=== PATIENT | female | born 1985 | race African-American/Black ===

== ENCOUNTER 2017-04-10 08:53 | Emergency (ER) | payer MEDICAID ==
[~2017-04-10] VITALS: Ht 175.3 cm; Wt 70.0 kg
[~2017-04-10 08:53] MED LIST: IBUP800T23 PO; ORPH100T99 PO; TRAM50TA PO
[2017-04-10 08:55] VITALS: BP 123/79; PULSE 108; RESP 20; TEMP 99; O2SAT 99
[2017-04-10] MEDS ORDERED: TUCKPAD5 TOPICAL (09:15)
[2017-04-10] MEDS ORDERED: COLA100C PO (09:15)
[2017-04-10] MEDS ORDERED: sitz bath (09:15)
--- NOTE | 2017-04-10 09:16 | PD ---
HPI Chief Complaint: GI Complaint Time Seen by Provider: 09:03 Travel History International Travel<30 days: No Contact w/Intl Traveler<30days: No Traveled to known affect area: No History of Present Illness HPI This is a 31 year old female who presents to the emergency department with pain involving her rectum, constant, moderate severity, worse with coughing or walking. Pt. has a hemorrhoid. She has had hemorrhoids before but usually they go away. She's been using topical [id number] ointments but is not getting any better. She says her stools have been pretty loose and she's not been constipated. PFSH Past Medical History ?: Not LMP: depovera Social History Alcohol Use: Yes Tobacco Use: Yes Substance Use: No Allergies-Medications (Allergen,Severity, Reaction): Coded Allergies: Peanut Allergy (Verified Allergy, Severe, 10/10/16) Reported Meds & Prescriptions Reported Meds & Active Scripts Active Review of Systems General / Constitutional: No: Fever, Chills Gastrointestinal: No: Nausea Physical Exam Narrative GENERAL: Well-appearing, no acute distress, nontoxic SKIN: Warm and dry. HEAD: Atraumatic. Normocephalic. ENT: No nasal bleeding or discharge. Moist mucous membranes GI: thrombosed hemorrhoid at 2 o'clock involving the rectum MUSCULOSKELETAL: No obvious deformities. No clubbing. No cyanosis. No edema. NEUROLOGICAL: Awake and alert. No obvious cranial nerve deficits. Motor grossly within normal limits. Normal speech. PSYCHIATRIC: Appropriate mood and affect; insight and judgment normal. Data Data Last Documented VS Vital Signs Date Time Temp Pulse Resp B/P Pulse Ox O2 Delivery O2 Flow Rate FiO2 04/10/17 08:55 99.0 108 20 123/79 99 Room Air MDM Medical Decision Making Medical Screen Exam Complete: Yes Emergency Medical Condition: Yes Interpretation(s) temperature 99.0 tachycardic normotensive Differential Diagnosis External hemorrhoid, internal hemorrhoid, anal fissure Narrative Course This is a 31-year-old female who presents to the emergency department having pain in her rectum associated with a hemorrhoid. Patient is well-appearing. I recommended topical witch aureliano, sitz bath, and stool softener and follow up with gastroenterology. Diagnosis Primary Impression: External hemorrhoid, thrombosed Referrals: Eddi Shah MD Patient Instructions: General Instructions Additional Instructions: If you develop severe abdominal pain, nausea, vomiting, fevers or chills return to the emergency department. Follow up with a stained glass artist if your symptoms dont improve. Med/Other Pt SpecificInfo: Prescription(s) given Scripts [sitz bath] No Conflict Check #1 Unit Prov:Kassy Romero MD 04/10/17 Docusate Sodium (Colace)100 Mg Capsule1 Tab PO BID #60 Prov:Kassy Romero MD 04/10/17 Witch Aureliano Topical (Tucks Medicated Topical)50 % Pad1 Pad TOPICAL Q4H PRN (PAIN /INFLAMMATION) #1 CONTAINER Ref 0 Prov:Kassy Romero MD 04/10/17 Disposition: 01 DISCHARGE HOME Condition: Stable Kassy Romero MD Apr 10, 2017 09:16
== END 2017-04-10 09:32 | disposition home or self-care (01) ==
LOC: NEPD 08:53
DX: K64.5 Perianal venous thrombosis (principal)
CPT/HCPCS: 99283